=== PATIENT | male | born 1975 | race Caucasian/White ===

== ENCOUNTER → 2018-08-09 | Outpatient (CLI) | payer BC ==
--- NOTE | 2018-08-09 11:40 | ECHOS ---
STRESS ECHOCARDIOGRAM INDICATIONS: Chest pain/shortness of breath MEDICATIONS: None. BASELINE HEART RATE: 72 BASELINE BLOOD PRESSURE: 103/52 MAXIMUM HEART RATE: 162 MAXIMUM BLOOD PRESSURE: 178/88 85% MPHR: 150 100% MPHR: 177 METS: 11.5 MAXIMUM STAGE REACHED: 4 TOTAL EXERCISE TIME: 10:00 CLINICAL INFORMATION: Baseline heart rate 72 beats per minute. Baseline blood pressure 103/52 mmHg. Baseline 12-lead ECG shows normal sinus rhythm with normal cardiac intervals. Patient exercised on Leonard protocol for 10 minutes achieving a peak heart rate of 162 beats per minute, normal blood pressure response to exercise. No ECG evidence for ischemia. No arrhythmias noted. Baseline 2D echo showed normal LV size and systolic function without segmental wall motion abnormalities. At peak exercise, there was excellent augmentation of overall LV contractility without developing any wall motion abnormalities. At recovery, regional global LV systolic function remained normal. IMPRESSION: Good exercise capacity and normal exercise stress echo. MMODL / IJN: [id number] /
== END | disposition home or self-care (01) ==
LOC: RADNMMAIN 09:06
PROVIDERS: ATTEND Family Medicine
DX: R07.9 Chest pain, unspecified (principal)
CPT/HCPCS: 93351

== ENCOUNTER → 2022-03-29 | Outpatient (CLI) | payer BC ==
--- NOTE | 2022-03-29 08:37 | MR ---
EXAMINATION TYPE: MR lspine/sacrum wo con DATE OF EXAM: 03/29/2022 COMPARISON: None at time of dictation. Continued PACS downtime. HISTORY: RADICULOPATHY LUMBAR REGION. Low back and sacral pain since injury 2013. Pain radiates into left lower extremity per patient. TECHNIQUE: Multiplanar, multisequence imaging of the lumbar spine into sacrum are performed without I V contrast. FINDINGS: Persistent levoconvex scoliosis centered at L1-L2 level. Sagittal images of the lumbar spin e show vertebral body heights to appear satisfactory. There is grade 1 retrolisthesis L2 on L3, and L 3 on L4. Multilevel disc desiccation with multilevel disc space narrowing being advanced at L2-L3 and L3-L4 levels where there are heterogeneous Modic type I and type III endplate changes noted along wi th moderate anterior spurring. The conus medullaris is normal in position and signal ending mid L1 l evel. Axial images at T12-L1 level shows mild broad-based disc bulge mildly effacing anterior thecal sac. Axial images at L1-L2 level show [id number] broad disc bulge mildly effacing the anterior theca l sac. There is mild to moderate right-sided facet arthropathy and ligament flavum hypertrophy effaci ng posterior lateral thecal sac on axial image 28. Patent bilateral neural foramina. Axial images at L2-L3 level show [id number] broad disc bulge with right foraminal disc protrusi on component effacing the anterior thecal sac and causing mild right-sided anterior inferior neural f oraminal narrowing. Patent left-sided neural foramina. Axial images at L3-L4 level show spondylolisthesis with mild/moderate broad disc bulge having right l ateral disc protrusion component. There is mild to moderate facet arthropathy bilaterally. There is e ffacement of the anterior thecal sac. There is [id number] right-sided neural foraminal narrowin g. Axial images at L4-L5 level shows subtle spondylolisthesis with mild/moderate facet arthropathy bilat erally. There is broad-based left foraminal and lateral disc protrusion causing asymmetric mild to mo derate inferior left neural foraminal narrowing. Right-sided neural foramen is patent. Left Anterolat eral spinal canal mildly efface sagittal image 8 up to to central left L5 nerve. Axial images at L5-S1 level shows mild facet arthropathy bilaterally. Focal central disc protrusion m inimally effacing anterior thecal sac. Severe left-sided neural foraminal narrowing and encroaching o n left L5 nerve sagittal image 5 and axial image 2 due to foraminal disc protrusion component. Right- sided neural foramina is moderately narrowed anteriorly up to anterior level of the L5 nerve sagittal image 15 for reference. Paraspinal muscle bulk is maintained. Images of the sacrum show the sacral alar to appear intact bilaterally. Sacroiliac joints are symmetr ic and within normal limits. No increased T2 signal or edema is identified. No significant spurring i s seen. Visualized bladder is within normal limits. Uterus is surgically absent or markedly atrophic. IMPRESSION: Scoliosis and multilevel degenerative changes in the lumbar spine as detailed above. Atte ntion to L5-S1 level where left L5 effacement is present and may account for patient's left-sided rad iculopathy type symptoms.
== END | disposition home or self-care (01) ==
LOC: RADMRIMAIN 05:59
PROVIDERS: ATTEND Family Medicine
DX: M51.37 Other intervertebral disc degeneration, lumbosacral region (principal); M54.16 Radiculopathy, lumbar region
CPT/HCPCS: 72148; 72195